=== PATIENT | male | born 1955 ===

== ENCOUNTER 2024-07-14 08:50 | Outpatient (REF) | payer OTHER, SELFPAY ==
[2024-07-14 09:54] LABS: MANUAL DIFF FLAG NO
--- OUTSIDE RECORDS SUMMARY | 2024-07-14 10:04 | XMS_ITS | Clinical Summary ---
Author Organization [address] [facility] Address [address] [place] [address] Phone Care Team Providers Care Sewer Hand Name Role Phone Rafia Fitch MD Primary [...] colon 05/13/2018 Overview (01/01/2024): Dr. Dorsey at [facility] 01/30/2012 4 polyps biopsied = tubular adenomas: [...] Chronic GERD 08/09/2016 Depression, major, [place] [place] Overview (01/01/2024): Prior to transferring to our practice in 2018 - saw psychiatrist at [facility] or [place]. Used to be on Risperdal in addition [...] Team Description 04/17/2024 Telephone Adult Medicine [address] [phone] Rafia Fitch MD Hyperglycemia from Last 3 [...] for your loved ones. For example, child nurse or elderly care for an older adult? [...] complication, without long-term current use of insulin ([facility] V24, [facility] V28) Dyslipidemia HEMOGLOBIN A1C Routine 04/15/2024 11:09 AM EST Type 2 diabetes mellitus without complication, without long-term current use of insulin ([facility] V24, [facility] V28) Dyslipidemia LIPID PANEL WITH REFLEX TO DIRECT LDL Routine 04/15/2024 11:09 AM EST Type 2 diabetes mellitus without complication, without long-term current use of insulin ([facility] V24, [facility] V28) Dyslipidemia URINE ALBUMIN CREATININE [...] mg/dL LAB CHEMISTRY METHOD 04/15/2024 5:06 PM [facility] Triglycerides 167(H) 0 - 150 mg/dL LAB CHEMISTRY METHOD 04/15/2024 5:06 PM [facility] HDL 46 >=40 mg/dL LAB CHEMISTRY METHOD 04/15/2024 5:06 PM [facility] LDL Calculated 107(H) 0 - 100 mg/dL LAB CHEMISTRY METHOD 04/15/2024 5:06 PM [facility] VLDL Cholesterol Marc 33.4 mg/dL LAB CHEMISTRY METHOD 04/15/2024 5:06 PM EST [facility] Non HDL Chol. (LDL+VLDL) 140 <145 mg/dL LAB CHEMISTRY METHOD 04/15/2024 5:06 PM [facility] Chol/HDL Ratio 4.0 0.0 - 4.4 LAB CHEMISTRY METHOD 04/15/2024 5:06 PM [facility] Blood Venous blood specimen / Unknown Venipuncture / Unknown 04/15/2024 11:09 AM EST 04/15/2024 11:09 AM EST Rafia Fitch MD LAB BLOOD ORDERABL ES Final Result Performing Organization Address [facility]/ZIP Co de Phone Number [facility] [address] [place] [address], [place] [phone] * (ABNORMAL) Hemoglobin A1c (04/15/2024 11:09 AM EST) Hemoglobin A1C 7.0(H) <6.5 % LAB CHEMISTRY METHOD 04/15/2024 1:56 PM [facility] Mean Bld Glu Estim. 154 mg/dL LAB CHEMISTRY METHOD 04/15/2024 1:56 PM [facility] Blood Venous blood specimen / Unknown Venipuncture / Unknown 04/15/2024 11:09 AM EST 04/15/2024 11:09 AM EST Rafia Fitch MD LAB BLOOD ORDERABL ES Final Result [facility] [address] [place] [address], [place] [phone] * (ABNORMAL) Comprehensive metabolic panel (04/15/2024 11:09 AM EST) Sodium 135 133 - 145 mmol/L LAB CHEMISTRY METHOD 04/15/2024 5:06 PM [facility] Potassium 4.1 3.5 - 5.5 mmol/L LAB CHEMISTRY METHOD 04/15/2024 5:06 PM [facility] Chloride 102 96 - 110 mmol/L LAB CHEMISTRY METHOD 04/15/2024 5:06 PM [facility] CO2 29 21 - 32 mmol/L LAB CHEMISTRY METHOD 04/15/2024 5:06 PM [facility] Anion Gap 4 3 - 11 LAB CHEMISTRY METHOD 04/15/2024 5:06 PM [facility] Glucose 168(H) 70 - 100 mg/dL LAB CHEMISTRY METHOD 04/15/2024 5:06 PM [facility] BUN 25 5 - 25 mg/dL LAB CHEMISTRY METHOD 04/15/2024 5:06 PM [facility] Creatinine 1.18 0.70 - 1.30 mg/dL LAB CHEMISTRY METHOD 04/15/2024 5:06 PM [facility] eGFR 67 >=60 mL/min/1. 73m2 LAB CHEMISTRY METHOD 04/15/2024 5:06 PM [facility] Comment:Calculation based on the??Chronic Kidney Disease Epidemiology Collaboration (CKD-EPI) equation refit??without adjustment for race. BUN/Creatinine Ratio 21.2 LAB CHEMISTRY METHOD 04/15/2024 5:06 PM [facility] Calcium 9.8 8.5 - 10.5 mg/dL LAB CHEMISTRY METHOD 04/15/2024 5:06 PM [facility] AST (SGOT) 18 10 - 42 unit/L LAB CHEMISTRY METHOD 04/15/2024 5:06 PM [facility] ALT (SGPT) 29 10 - 60 unit/L LAB CHEMISTRY METHOD 04/15/2024 5:06 PM [facility] Alkaline Phosphatase 82 42 - 121 unit/L LAB CHEMISTRY METHOD 04/15/2024 5:06 PM EST [facility] Total Protein 7.9 6.0 - 8.0 g/dL LAB CHEMISTRY METHOD 04/15/2024 5:06 PM EST [facility] Albumin 4.0 3.2 - 5.0 g/dL LAB CHEMISTRY METHOD 04/15/2024 5:06 PM EST [facility] Total Bilirubin 0.4 0.0 - 1.4 mg/dL LAB CHEMISTRY METHOD 04/15/2024 5:06 PM EST [facility] Blood Venous blood specimen / Unknown Venipuncture / Unknown 04/15/2024 11:09 AM EST 04/15/2024 11:09 AM EST Rafia Fitch MD LAB BLOOD ORDERABL ES Final Result [facility] [address] [place] [address], * Urine Albumin Creatinine Ratio (11/14/2023) [facility] Urine Albumin Creatinine Ratio Abstracted Historical Provider HEALTH MAINTENANCE Final Result * Diabetes Foot Exam (07/18/2023) [facility] Diabetes: Annual Foot Exam Abstracted Historical Provider HEALTH MAINTENANCE Final Result * Colonoscopy (07/30/2018) [facility] Colonoscopy No interpretation , Abstracted Anatomical Region Laterality Modality Other Historical Provider HEALTH MAINTENANCE Final Result * Hepatitis C Screening (11/07/2017) [facility] Hepatitis C Screening Abstracted Historical Provider HEALTH MAINTENANCE Final Result from Last 3 Months or Most Recently Relevant to Health Maintenance Insurance [facility] Member Subscriber Plan / Payer (Ef fective 2020-Present) Name:rDe Jimenez Relation to Subscriber:Self Name:Dre Jimenez Payer ID:[id number] Group ID:[id number] Type:Not on file Address: [place] [address] [place] [phone] Care Teams Sewer Hand Relationship Specialty Start Date End Date Rafia Fitch MD [address] [place] [id number] PCP - General Internal Medicine 10/03/21
[2024-07-14 10:32] LABS: Basophils Percent Auto 0.5 % (0-2); Eosinophils Absolute Auto 0.3 X10*3/uL (0.0-0.4); Eosinophils Percent Auto 3.8 % (0-4); Hemoglobin 12.3 g/dl (14.0-18.0); Imm Gran Abs Auto 0.03 X10*3/uL (0.00-0.03); Imm Gran Pct Auto 0.4 % (0.0-0.4); Lymphocytes Absolute Auto 2.7 X10*3/uL (1.2-4.9); Mean Corpuscular HGB Conc 33.2 g/dl (31.0-36.0); Mean Corpuscular Hemoglobin 30.2 pg (27.0-33.0); Mean Corpuscular Volume 90.9 fL (80.0-98.0); Mean Platelet Volume 9.1 fL (9.4-12.4); Monocytes Absolute Auto 0.4 X10*3/uL (0.1-1.2); Monocytes Percent Auto 5.8 % (2-11); Neutrophils Absolute Auto 3.8 x10*3/uL (2.0-8.3); Neutrophils Percent Auto 52.5 % (45-73); Platelet Count 197 X10*3/uL (160-400); Red Blood Count 4.07 X10*6/uL (4.60-5.80); Red Cell Distribution Width 12.6 % (11.0-16.0); White Blood Count 7.3 X10*3/uL (4.8-10.8)
[2024-07-14 11:23] LABS: Alanine Aminotransferase 31 U/L (0-40); Albumin Level 4.4 g/dL (3.5-5.0); Anion Gap 13 (12-20); Aspartate Amino Transferase 44 U/L (5-37); Bilirubin Total 0.5 mg/dL (0.0-1.0); Blood Urea Nitrogen 28 mg/dL (9-16); Carbon Dioxide 27 mmol/L (22-29); Chloride 102 mmol/L (96-108); Cholesterol 167 mg/dL (<200); Estimated Glomerular Filt Rate > 60; Glucose Fasting 117 mg/dL (60-99); HDL Cholesterol 46 mg/dL (>40); LDL Cholesterol Calculated 93 mg/dL (<100); Potassium 4.6 mmol/L (3.3-5.1); Sodium 137 mmol/L (135-145); Total Protein 7.8 g/dL (6.5-8.0); Triglycerides 140 mg/dL (<150)
[2024-07-14 11:37] LABS: Vitamin D 25-OH Total 29.6 ng/mL (>30)
[2024-07-14 12:22] LABS: Alkaline Phosphatase 74 U/L (39-117)
== END 2024-07-14 08:51 | disposition home or self-care (01) ==
LOC: HO.LAB 08:50
PROVIDERS: PCP Internal Medicine; Visit Provider Internal Medicine
DX: F33.1 Major depressive disorder, recurrent, moderate (principal); F41.1 Generalized anxiety disorder; J30.9 Allergic rhinitis, unspecified; G43.909 Migraine, unspecified, not intractable, without status migrainosus; E78.00 Pure hypercholesterolemia, unspecified; K21.9 Gastro-esophageal reflux disease without esophagitis; G47.00 Insomnia, unspecified; E55.9 Vitamin D deficiency, unspecified; E78.5 Hyperlipidemia, unspecified
CPT/HCPCS: 36415; 80053; 80061; 82306; 84153; 85025; 96127; 99202

== ENCOUNTER 2024-07-14 08:50 | Outpatient (AMB) | payer OTHER, SELFPAY ==
--- NOTE | 2024-07-14 08:53 | A.OFFPC_ITS ---
Vital Signs 07/14/24 08:57 Height 5 ft 7 in Weight 195 lb BMI 30.5 BP 138/82 Blood Pressure Location Lt brachial Position Sitting Intake Visit Reasons: establish [facility] Industrial Relations Analyst Required: No Accompanied by: Self / Same As Patient Allergies No Known Allergies [No Known Allergies*] Allergy (Verified 07/14/24 09:14) Medication List - Last Reconciled 07/14/24 by Brianda Galeana MD atorvastatin 80 mg PO DAILY cetirizine 10 mg PO DAILY hydroxyzine pamoate 50 mg PO BID PRN omeprazole 20 mg PO DAILY paroxetine HCl 30 mg PO DAILY prazosin 5 mg PO BEDTIME quetiapine 50 mg PO BEDTIME ramelteon 8 mg PO BEDTIME sumatriptan succinate take 1 tab at onset of headache; if no relief may repeat 1 tab after at least 2 hrs; max = 4 tabs/24 hr PO trazodone mg PO BEDTIME PRN Tobacco use date assessed: 07/14/24 Fall risk assessment: No Falls in past year Last assessed Fall Risk: 07/14/24 Dental Screening Dental Screen Date: 07/14/24 Did you have a dental visit in the last 12 months?: Yes Did you have a dental problem in the last 6 months where you did not have access to dental care?: No Was dental information given to patient?: Patient has dentist HPI HPI Comments History of Present Illness Details The patient is a 68-year-old male presents to [facility]. He is managing multiple chronic conditions with his current medication regimen, which includes atorvastatin for hyperlipidemia, paroxetine for moderate depression, and cetirizine for allergic rhinitis. He reports using hydroxyzine as needed, and omeprazole for gastroesophageal reflux disease management. He has insomnia addressed by trazodone and migraines treated with sumatriptan. He is receiving therapy and used Prazosin and Seroquel for psychiatric support, with ramelteon aiding sleep. There are no recent surgical procedures; however, the patient has anticipated a rotator cuff assessment. He has completed pneumonia and tetanus vaccinations. [facility] Surgical History History of toe surgery Family History (Updated 07/14/24 @ 09:21 by Brianda Galeana MD) Mother No problems noted. Father No problems noted. Social History (Updated 07/14/24 @ 09:22 by Brianda Galeana MD) Housing: Apartment Alcohol intake: current Alcohol intake frequency: holidays/special occasions only Patient Tobacco Use Status: Never used Tobacco e-Cigarette/Vaping Use: Never Used Second Hand Smoke Exposure: No service: No Current occupational status: retired Current occupational exposures/hazards: No Cognitive needs: No Hearing needs: No Vision needs: Yes Questionnaire PHQ-9 Over the last 2 weeks, how often have you been bothered by any of the following problems? 1. Little interest or pleasure in doing things: more than half the days 2. Feeling down, depressed, or hopeless: more than half the days 3. Trouble falling or staying asleep, or sleeping too much: more than half the days 4. Feeling tired or having little energy: more than half the days 5. Poor appetite or overeating: several days 6. Feeling bad about yourself - or that you are a failure or have let yourself or your family down: several days 7. Trouble concentrating on things, such as reading the newspaper or watching television: more than half the days 8. Moving or speaking so slowly that other people could have noticed. Or the opposite - being so fidgety or restless that you have been moving around a lot more than usual: several days 9. Thoughts that you would be better off or of hurting yourself in some way: not at all Total score: 13 Depression Screening Interpretation: Positive Depression Screening Follow-up: Existing condition, In treatment, Community Mental Health Worker F/U and Follow- up Visit Requested Depression Screening Done: Yes 69049 - PHQ-9 Billing: Yes Source: Developed by Drs. Sameer Ramos, Zoe Fields, Cameron Corral and colleagues, with an educational shaun from [employer]. Thrive Questionnaire Date Thrive assessed: 07/14/24 I am a: Patient What is your living situation today?: I have a steady place to live Within the past 12 months, did the food you bought not last and you didn't have the money to get more?: Never true Within the past 12 months, did you worry whether your food would run out before you got money to buy more?: Never true Do you have trouble paying for medicines?: No Do you have trouble getting transportation to medical appointments?: No Do you have trouble paying your heating and electricity bill?: No Do you have trouble taking care of your child, family member or friend?: Yes Do you have trouble with day-to-day activities such as bathing, preparing meals, shopping, managing finances, etc.?: Yes Are you currently unemployed and looking for a job?: No Are you interested in more education?: No Please select the resources that you would like help with: None Currently or been in a relationship where the following occur: I choose not to answer THRIVE Score: 0 AUDIT C Alcohol Use Questionnaire (AUDIT-C) 1. How often do you have a drink containing alcohol?: Never Total Score: 0 Score Reviewed/Action Taken: No ERIC-7 AMB Questionnaire ERIC-7 Date ERIC - 7 assessed: 07/14/24 Feeling nervous, anxious, or on edge: 2 = More than half the days Not being able to stop or control worryin = Several days Worrying too much about different things: 1 = Several days Trouble relaxin = Several days Being so restless that it is hard to sit still: 1 = Several days Becoming easily annoyed or irritable: 1 = Several days Feeling afraid as if something awful might happen: 1 = Several days Total ERIC-7 score (0-4 normal; 5-9 mild; 10-14 moderate; 15-21 severe): 8 Source: Developed by Drs. Sameer Ramos, Zoe Fields, Cameron Corral and colleagues, with an educational shaun from [employer]. ERIC-7 Assessment Billing ERIC-7 Assessment Tool: ERIC-7 Assessment 33055 Review of Systems Const All systems reviewed & are unremarkable except as noted in HPI and below Card Denies chest pain at rest, Denies chest pain with activity, Denies edema, Denies irregular heart rhythm, Denies claudication, Denies dyspnea, Denies dyspnea on exertion, Denies orthopnea, Denies paroxysmal nocturnal dyspnea and Denies slow heart rate Resp Denies cough, Denies dyspnea and Denies dyspnea on exertion GI Denies abdominal pain, Denies change in bowel habits, Denies excessive flatus, Denies nausea and Denies vomiting Neuro Denies behavioral changes and Denies lack of coordination Psych Denies behavioral changes Physical exam (Primary Care) Vital Signs: Last Vital Signs BP 138/82 07/14/24 08:57 BMI result Body Mass Index 30.5 Tobacco/Smoking Status: Tobacco use Status Tobacco use date assessed 07/14/24 07/14/24 09:06 Patient Tobacco Use Status Never used Tobacco 07/14/24 09:06 e-Cigarette/Vaping Use Never Used 07/14/24 09:06 PHQ-9: PHQ-9 Score PHQ-9: Total score 13 07/14/24 08:55 Depression Screening Interpretation: Positive Depression Screening Follow-up: Existing condition, In treatment, Community Mental Health Worker F/U and Follow- up Visit Requested Thrive Assessment: Date of Thrive Assessment Date Thrive assessed 07/14/24 07/14/24 08:55 Currently or been in a relationship where the following occur: I choose not to answer Resp Effort & Inspection: normal respiratory effort Auscultation: clear to auscultation bilaterally Cardio Jugular venous distension: no JVD Rate: regular rate Rhythm: regular rhythm Heart sounds: S1 normal heart sound present and S2 normal heart sound present Extrem General: Yes full ROM Coding Level of Care Code New Pt Level 4 (19100) Complex EM visit Add On G2211 Diagnoses 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 ERIC (generalized anxiety disorder) F41.1 Allergic rhinitis J30.9 Migraines G43.909 Pure hypercholesterolemia E78.00 Chronic GERD K21.9 Insomnia G47.00 Additional Codes PHQ-9 - 00167 - PHQ-9 Billing: Yes ([id number]) ERIC-7 Assessment Billing - ERIC-7 Assessment Tool: ERIC-7 Assessment 97931 ([id number]) Time Spent (min) 24 Assessment & Plan Assessment & Plan (1) Moderate recurrent major depression: Code(s): F33.1 - Major depressive disorder, recurrent, moderate Category: Medical (2) ERIC (generalized anxiety disorder): Code(s): F41.1 - Generalized anxiety disorder Category: Medical (3) Allergic rhinitis: Code(s): J30.9 - Allergic rhinitis, unspecified Category: Medical (4) Migraines: Code(s): G43.909 - Migraine, unspecified, not intractable, without status migrainosus Category: Medical (5) Pure hypercholesterolemia: Code(s): E78.00 - Pure hypercholesterolemia, unspecified Category: Medical (6) Chronic GERD: Code(s): K21.9 - Gastro-esophageal reflux disease without esophagitis Category: Medical (7) Insomnia: Code(s): G47.00 - Insomnia, unspecified Category: Medical Plan I will continue to monitor the patient?s current medication management, including atorvastatin for hyperlipidemia and paroxetine for depression, while ensuring adequate control of other chronic conditions. Insomnia and migraines remain under focused treatment with trazodone and sumatriptan, respectively. Vaccinations are up-to-date, but plans for future colonoscopy and rotator cuff evaluations are pending. Follow-up to ensure proper adherence and effectiveness of current therapeutic strategies will be emphasized. Patient was informed and verbally consented to the use of an ambient scribe for clinic note documentation during this visit. I discussed existing treatment regimens with the patient, including the continuation of atorvastatin for cholesterol management and paroxetine, Prazosin, and therapy for depression and PTSD symptoms. We reviewed the importance of medication compliance to manage his presenting conditions, including using cetirizine and hydroxyzine for allergies and sumatriptan for migraines. I advised on potential adverse effects, and the patient expressed understanding. There was a discussion about the need for a colonoscopy and possible rotator cuff evaluation, both pending. Vaccine statuses were confirmed, and wellness screening through routine blood tests were advised. Orders: Orders Vitamin D 25-OH Total Today E55.9 - Vitamin D deficiency, unspecified Lipid Panel Today E78.5 - Hyperlipidemia, unspecified Comprehensive [place]. Panel Fast Today E78.00 - Pure hypercholesterolemia, unspecified PSA,Total (Free>4and<10) Today R35.1 - Nocturia Complete Blood Count Auto Diff Today G43.909 - Migraine, unspecified, not intractable, without status migrainosus Referrals Open Access Screening Colonoscopy Referral Z12.12 - Encounter for screening for malignant neoplasm of rectum Patient Instructions: - Continue prescribed medications as directed. - Follow a low-cholesterol diet with regular exercise as tolerated. - Schedule colonoscopy appointment as planned. - Monitor and report any new symptoms or changes in existing conditions. - Contact healthcare provider with any questions or concerns. - Stay up-to-date with vaccinations and recommended screenings.
[2024-07-14 08:57] VITALS: BP 138/82; BMI 30.5
--- OUTSIDE RECORDS SUMMARY | 2024-07-14 08:57 | XMS_ITS | Clinical Summary ---
Author Organization [address] [facility] Address [address] [place] [address] Phone Care Team Providers Care Physician Aide Name Role Phone Rafia Fitch MD Primary Care Prov ider Allergies No known active allergies Medications blood-glucose meter kit Use to check blood sugars once daily 3 Active diclofenac (VOLTAREN) 1 % topical gel Apply 4 g topically 2 times daily. 4 Active fluticasone propionate (FLONASE) 50 mcg/actuation nasal spray 2 Sprays by Each Nare route daily. 3 Active hydrOXYzine HCL (ATARAX) 50 mg tablet Take 1 tablet by mouth 2 Times Daily. 1 Active omeprazole (PriLOSEC) [address] capsule TAKE 1 CAPSULE BY MOUTH EVERY DAY 4 Active oxyCODONE (ROXICODONE) 5 mg immediate release tablet Take one tablet every 4 hours as needed for pain 4 Active PARoxetine (PAXIL) 30 mg tablet TAKE 1 TABLET BY MOUTH EVERY DAY IN THE MORNING 3 Active prazosin (MINIPRESS) 5 mg capsule TAKE 1 CAPSULE BY MOUTH EVERY DAY AT BEDTTIME 2 Active QUEtiapine (SEROquel) 50 mg tablet 1 Active ramelteon (ROZEREM) 8 mg tablet 1 Active albuterol HFA (PROAIR HFA ; PROVENTIL HFA ; VENTOLIN HFA) 90 mcg/actuation inhaler Inhale 2 puffs by mouth every 6 (six) hours if needed for wheezing. 1 each 4 Active guaiFENesin (MUCINEX) 600 mg 12 hr tablet Take 2 tablets (1,200 mg total) by mouth 2 (two) times a day if needed for cough. Do not crush, chew, or split. 20 each 4 Active metFORMIN (GLUCOPHAGE) 500 mg tablet Take 1 tablet (500 mg total) by mouth 2 (two) times a day with meals. 180 tablet 1 5 Active SITagliptin phosphate (Januvia) 25 mg tablet Take 1 tablet (25 mg total) by mouth 1 (one) time each day. 90 tablet 5 Active atorvastatin (LIPITOR) 80 mg tablet TAKE 1 TABLET BY MOUTH EVERY DAY 90 tablet 1 5 Active OneTouch Ultra Test test strip USE TO CHECK BLOOD SUGAR ONCE DAILY 100 strip 1 5 Active lisinopriL (PRINIVIL,ZESTR IL) 10 mg tablet TAKE 1 TABLET BY MOUTH EVERY DAY 90 tablet 5 Active cetirizine (ZyrTEC) 10 mg tablet TAKE 1 TABLET BY MOUTH EVERY DAY 90 tablet 1 5 Active traZODone (DESYREL) 150 mg tablet TAKE 2 TABLETS BY MOUTH AT BEDTIME 180 tablet 1 5 Active lancets (OneTouch Delica Plus Lancet) 33 gauge USE ONCE A DAY DIRECTED 100 each 1 5 Active Active Problems Problem Noted Date Diagnosed Date Trigger index finger of left hand 03/11/2021 Chronic pain of both knees 10/03/2018 Tubular adenoma of colon 05/13/2018 Overview (01/01/2024): Dr. Dorsey at [facility] 01/30/2012 4 polyps biopsied = tubular adenomas: Cecum, Ascending colon, sigmoid colon, rectum Rpt colonoscopy Dr. Kimi Mckeon 07/30/2018 - 5 polyps - tubular adenomas. Rpt in 5 yrs Decreased libido 02/14/2018 Type 2 diabetes mellitus (CMS/HCC V24, CMS/HCC V 28) 06/14/2017 Assessment & Plan (03/28/2024 12:24 PM EST): Good control of diabetes. A1C: 6.8. Patient will continue with yearly Podiatric and Ophthomologic evaluations. Will continue Angiotensin Converting Enzyme Inhibitor for renal protection. Patient states he does not want to take Metformin anymore for possible side effects. I explained to him the benefits of this medication, and that he has tolerated it well, however he wants to try a different one. Will prescribe Januvia. Benefits and possible side effects of this medication were discussed today. Will start a dose of 25 mg, recheck his A1c before his next visit. Instructed to stop taking metformin when he gets the new medication. Patient has been following the diet recommendations, and exercising regularly. We will check a hemoglobin A1c, before next visit. Patient will follow up in 4 months Orders: Comprehensive metabolic panel; Future Hemoglobin A1c; Future Lipid panel with reflex to direct LDL; Future Lung nodule 04/03/2017 Wheezing 04/03/2017 Anxiety 03/01/2017 Migraine 03/01/2017 Depression 03/01/2017 Assessment & Plan (03/28/2024 12:24 PM EST): Patient follows regularly with his psychiatrist. Encouraged to keep his appointments and continue taking the medications. No SI, HI. Pure hypercholesterolemia 03/01/2017 Anemia 09/25/2016 Chronic GERD 08/09/2016 Depression, major, in remission [place] [place] Overview (01/01/2024): Prior to transferring to our practice in 2018 - saw psychiatrist at [facility] or [place]. Used to be on Risperdal in addition to fluoxetine, hydroxyzine, prazosin Dyslipidemia 08/09/2016 Assessment & Plan (03/28/2024 12:24 PM EST): Given the patients cardiac risk, the patient requires an LDL cholesterol of less than 70. Currently on atorvastatin 80 mg daily. Last LDL was 78. I have instructed the patient on the principles of a low cholesterol diet and the importance of regular exercise. We will check a cholesterol profile before the next visit. Orders: Comprehensive metabolic panel; Future Hemoglobin A1c; Future Lipid panel with reflex to direct LDL; Future Obesity 08/09/2016 Right hand and foot pain 08/09/2016 Seasonal allergies 08/09/2016 Encounters Date Type Department Care Team Description 04/17/2024 Telephone Adult Medicine [address] [id number] Rafia Fitch MD Hyperglycemia from Last 3 Months Immunizations Name Administration Dates Next Due Influenza Quadravalent, MDCK , 0.5ml, preservative free (Flucelvax) 6mo and older 12/05/2019 Influenza Quadravalent, MDCK , 0.5ml, with preservative (Flucelvax) 6mo and older 11/07/2017 Influenza trivalent, 0.5mL ( Fluad) 65yo and older 11/07/2023,01/02/2023,01/10/2022,01/20 Influenza trivalent, 0.5mL, preservative free (Fluarix; FluLaval; Fluzone) ages 6mo and older (Afluria) 3 years and older 01/14/2022,12/03/2018 Influenza, Unspecified 01/02/2023,12/03/2018 Pneumococcal conjugate 20 va lent (Prevnar 20, PCV 20) 2mo and older 07/18/2023 Pneumococcal polysaccharide 23 valent (Pneumovax 23) 2yo and older 06/14/2017 Tdap Tetanus diptheria acell ular pertussis (Boostrix; Adacel) 7yo and older 06/14/2017 Zoster recombinant (Shingrix ) 19yo and older 05/16/2021,05/04/2021,02/28/2021,11/04 Surgical History Surgery Date Site/Laterality Comments FOOT ARTHROPLASTY Medical History Medical History Date Comments Decreased libido 02/14/2018 DX:Decreased li shaq Tubular adenoma of colon 05/13/2018 DX:Tubu lar adenoma of colon Chronic pain of both knees 10/03/2018 DX:Ch ronic pain of both knees HTN (hypertension) Hyperlipidemia Diabetes (CMS/HCC V24, CMS/HCC V28) Anxiety Family History Medical History Relation Name Comments No Known Problems Daughter No Known Problems Father Alzheimer's disease Mother No Known Problems Son Brain cancer Neg Hx Colon cancer Neg Hx Heart attack Neg Hx Prostate cancer Neg Hx Stroke Neg Hx Relation Name Status Comments Brother 1 Alive Brother 2 Alive Brother 3 Alive Brother 4 Alive Brother 5 Alive Daughter Alive Father Alive Maternal Grandfather Maternal Grandmother Mother Alive Paternal Grandfather Paternal Grandmother Sister 1 Alive Sister 2 Alive Son Alive Social History Tobacco Use Types Packs/Day Years Used Date Smoking Tobacco: Never Smokeless Tobacco: Never Tobacco Cessation:Counseling Given: Not Answered Alcohol Use Standard Drinks/Week Comments No 0 (1 standard drink = 0.6 oz pur e alcohol) Housing Instability Answer Date Recorde d Are you worried that in the next 2 months you may not have stable housing? No 03/21/2024 Food Access & Nutrition Answer Date Rec orded Do you have access to a vari ety of food including fruits and vegetables? Yes 03/21/2024 Access to Healthcare Answer Date Record ed Within the last 3 months, ho w many times did you visit the emergency department for your medical care? 1 03/21/2024 Health Literacy Answer Date Recorded How often do you need to hav e someone help you when you read instructions, pamphlets, or other written material from your doctor or pharmacy? Always 03/21/2024 Caregiver: How often do you need to have someone help you when you read instructions, pamphlets, or other written material from your doctor or pharmacy? Not on file 03/21/2024 Financial Risk Answer Date Recorded How hard is it for you to pa y for the very basics like food, housing, medical care, and air conditioning / heating? Unable to respond 03/21/2024 Transportation Answer Date Recorded Has the lack of transportati on kept you from meetings, work, or from getting things needed for daily living? No Has the lack of transportati on kept you from medical appointments or from getting medications? No 03/21/2024 Social Isolation Answer Date Recorded How often do you feel lonely or isolated from th ose around you? Often 03/21/2024 Food Risk Answer Date Recorded Within the past 12 months we worried whether our food would run out before we got money to buy more. Unable to respond 025 Within the past 12 months th e food we bought just didn't last and we didn't have money to get more. Unable to respond 03/05 Dependent Care Answer Date Recorded Do you need help finding or paying for care for your loved ones. For example, child care teacher or elderly care for an older adult? No 03/21/2024 Education Answer Date Recorded Do you think completing more education or training, like finishing a GED, going to college, or learning a trade, would be helpful for you? Patient declined 03/21/2024 Employment and Income Answer Date Recor ded During the last four weeks, have you been actively looking for work? No 03/21/2024 Living Situation Answer Date Recorded What is your living situation? 0 03/21/2024 Sex and Gender Information Value Date Recorded Sex Assigned at Not on file Legal Sex Male 9:43 AM EST Gender Identity Not on file Sexual Orientation Not on file Obstetrics History Last Filed Vital Signs Vital Sign Reading Time Taken Comments Blood Pressure 112/62 03/28/2024 9:16 AM EST Pulse 73 03/28/2024 9:16 AM EST Temperature 36.4 ??C (97.5 ??F) 03/28/2024 9:16 AM ES T Respiratory Rate 18 03/28/2024 9:16 AM EST Oxygen Saturation 98% 01/17/2024 9:50 AM EST Inhaled Oxygen Concentration - - Weight 87.5 kg (193 lb) 03/28/2024 9:16 AM EST Height 177.8 cm (5' 10 ) 01/21/2024 12:49 PM EST Body Mass Index 27.69 01/21/2024 12:49 PM EST Plan of Treatment Health Maintenance Due Date Last Done Comments Medicare Annual Wellness Visit 02/11/2022 Colorectal Cancer Screening: Colonoscopy 07/31/2023 07/30/2018 COVID-19 Vaccine ( season) 2023 12/14/2020, 05/03/2020, 04/12/2020 Diabetes: Annual Foot Exam 07/17/2024 07/18/2023 Diabetes: Blood Sugar Control Test (HGBA1C) 10/13/2024 04/15/2024, 11/14/2023, 11/14/2023, Additional history exists Diabetes: Annual Urine Albumin-Creatinine Ratio (uACR) 11/13/2024 11/14/2023 Depression Screening 03/21/2025 03/21/2024 Social Influencers of Health Screening 03/21/2025 03/21/2024 Falls Risk Assessment 03/28/2025 03/28/2024 Diabetes: Annual GFR (Glomerular Filtration Rate) 04/15/2025 04/15/2024, 01/08/2024, 12/05/2023, Additional history exists Diabetes: Annual Retina Eye Exam 04/24/2025 04/24/2024, 06/21/2023 DTaP,Tdap,and Td Vaccines (2 - Td or Tdap) 06/15/2027 06/14/2017 Cholesterol Screening (Lipid Panel) 04/15/2029 04/15/2024, 04/11/2023 RSV Immunization Adult Patients (1 - 1-dose 75+ series) 07/25/2030 Hepatitis C Screening Completed 11/07/2017 Zoster Vaccines Completed 05/16/2021, 0304/2021, 02/28/2021, Additional history exists Pneumococcal Vaccine: 50+ Years Completed 07/18/2023, 06/14/2017 Influenza Vaccine Completed 11/07/2023, , 01/02/2023, Additional history exists HIB Vaccines Aged Out No longer eligi ble based on patient's age to complete this topic HPV Vaccines Aged Out No longer eligi ble based on patient's age to complete this topic Hepatitis A Vaccines Aged Out No long er eligible based on patient's age to complete this topic Hepatitis B Vaccines Aged Out No long er eligible based on patient's age to complete this topic IPV Vaccines Aged Out No longer eligi ble based on patient's age to complete this topic MMR Vaccines Aged Out No longer eligi ble based on patient's age to complete this topic Meningococcal ACWY Vaccine Aged Out N o longer eligible based on patient's age to complete this topic Meningococcal B Vaccine Aged Out No l onger eligible based on patient's age to complete this topic RSV Immunization Patients Under 20 months Aged Out No longer eligible based on patient's age to complete this topic Varicella Vaccines Aged Out No longer eligible based on patient's age to complete this topic Procedures Procedure Name Priority Date/Time Associated Diagnosis Comments EXTERNAL DIABETIC RETINA EYE EXAM Routine 04/24/2024 10:48 AM EST COMPREHENSIVE METABOLIC PANEL Routine 04/15/2024 11:09 AM EST Type 2 diabetes mellitus without complication, without long-term current use of insulin ([facility] V24, [facility] V28) Dyslipidemia HEMOGLOBIN A1C Routine 04/15/2024 11:09 AM EST Type 2 diabetes mellitus without complication, without long-term current use of insulin ([facility] V24, [facility] V28) Dyslipidemia LIPID PANEL WITH REFLEX TO DIRECT LDL Routine 04/15/2024 11:09 AM EST Type 2 diabetes mellitus without complication, without long-term current use of insulin ([facility] V24, [facility] V28) Dyslipidemia URINE ALBUMIN CREATININE RATIO Routine 11/14/2023 DIABETES FOOT EXAM Routine 07/18/2023 COLONOSCOPY Routine 07/30/2018 HEPATITIS C SCREENING Routine 11/07/2017 from Last 3 Months or Most Recently Relevant to Health Maintenance Results * External Diabetic Retina Eye Exam Report (04/24/2024 10:48 AM EST) Anatomical Region Laterality Modality Ultrasound us Historical Provider MD RAMOS US PROCEDURES Final R esult * (ABNORMAL) Lipid panel with reflex to direct LDL (04/15/2024 11:09 AM EST) Cholesterol 186 0 - 200 mg/dL LAB CHEMISTRY METHOD 04/15/2024 5:06 PM [facility] Triglycerides 167(H) 0 - 150 mg/dL LAB CHEMISTRY METHOD 04/15/2024 5:06 PM [facility] HDL 46 >=40 mg/dL LAB CHEMISTRY METHOD 04/15/2024 5:06 PM [facility] LDL Calculated 107(H) 0 - 100 mg/dL LAB CHEMISTRY METHOD 04/15/2024 5:06 PM [facility] VLDL Cholesterol Marc 33.4 mg/dL LAB CHEMISTRY METHOD 04/15/2024 5:06 PM EST [facility] Non HDL Chol. (LDL+VLDL) 140 <145 mg/dL LAB CHEMISTRY METHOD 04/15/2024 5:06 PM [facility] Chol/HDL Ratio 4.0 0.0 - 4.4 LAB CHEMISTRY METHOD 04/15/2024 5:06 PM [facility] Blood Venous blood specimen / Unknown Venipuncture / Unknown 04/15/2024 11:09 AM EST 04/15/2024 11:09 AM EST Rafia Fitch MD LAB BLOOD ORDERABL ES Final Result Performing Organization Address [facility]/ZIP Co de Phone Number [facility] [address] [place] [address], [place] [phone] * (ABNORMAL) Hemoglobin A1c (04/15/2024 11:09 AM EST) Hemoglobin A1C 7.0(H) <6.5 % LAB CHEMISTRY METHOD 04/15/2024 1:56 PM [facility] Mean Bld Glu Estim. 154 mg/dL LAB CHEMISTRY METHOD 04/15/2024 1:56 PM [facility] Blood Venous blood specimen / Unknown Venipuncture / Unknown 04/15/2024 11:09 AM EST 04/15/2024 11:09 AM EST Rafia Fitch MD LAB BLOOD ORDERABL ES Final Result [facility] [address] [place] [address], [place] [phone] * (ABNORMAL) Comprehensive metabolic panel (04/15/2024 11:09 AM EST) Sodium 135 133 - 145 mmol/L LAB CHEMISTRY METHOD 04/15/2024 5:06 PM [facility] Potassium 4.1 3.5 - 5.5 mmol/L LAB CHEMISTRY METHOD 04/15/2024 5:06 PM [facility] Chloride 102 96 - 110 mmol/L LAB CHEMISTRY METHOD 04/15/2024 5:06 PM [facility] CO2 29 21 - 32 mmol/L LAB CHEMISTRY METHOD 04/15/2024 5:06 PM [facility] Anion Gap 4 3 - 11 LAB CHEMISTRY METHOD 04/15/2024 5:06 PM [facility] Glucose 168(H) 70 - 100 mg/dL LAB CHEMISTRY METHOD 04/15/2024 5:06 PM [facility] BUN 25 5 - 25 mg/dL LAB CHEMISTRY METHOD 04/15/2024 5:06 PM [facility] Creatinine 1.18 0.70 - 1.30 mg/dL LAB CHEMISTRY METHOD 04/15/2024 5:06 PM [facility] eGFR 67 >=60 mL/min/1. 73m2 LAB CHEMISTRY METHOD 04/15/2024 5:06 PM [facility] Comment:Calculation based on the??Chronic Kidney Disease Epidemiology Collaboration (CKD-EPI) equation refit??without adjustment for race. BUN/Creatinine Ratio 21.2 LAB CHEMISTRY METHOD 04/15/2024 5:06 PM [facility] Calcium 9.8 8.5 - 10.5 mg/dL LAB CHEMISTRY METHOD 04/15/2024 5:06 PM [facility] AST (SGOT) 18 10 - 42 unit/L LAB CHEMISTRY METHOD 04/15/2024 5:06 PM [facility] ALT (SGPT) 29 10 - 60 unit/L LAB CHEMISTRY METHOD 04/15/2024 5:06 PM [facility] Alkaline Phosphatase 82 42 - 121 unit/L LAB CHEMISTRY METHOD 04/15/2024 5:06 PM EST [facility] Total Protein 7.9 6.0 - 8.0 g/dL LAB CHEMISTRY METHOD 04/15/2024 5:06 PM EST [facility] Albumin 4.0 3.2 - 5.0 g/dL LAB CHEMISTRY METHOD 04/15/2024 5:06 PM EST [facility] Total Bilirubin 0.4 0.0 - 1.4 mg/dL LAB CHEMISTRY METHOD 04/15/2024 5:06 PM EST [facility] Blood Venous blood specimen / Unknown Venipuncture / Unknown 04/15/2024 11:09 AM EST 04/15/2024 11:09 AM EST Rafia Fitch MD LAB BLOOD ORDERABL ES Final Result [facility] [address] [place] [address], * Urine Albumin Creatinine Ratio (11/14/2023) [facility] Urine Albumin Creatinine Ratio Abstracted Historical Provider HEALTH MAINTENANCE Final Result * Diabetes Foot Exam (07/18/2023) [facility] Diabetes: Annual Foot Exam Abstracted Historical Provider HEALTH MAINTENANCE Final Result * Colonoscopy (07/30/2018) [facility] Colonoscopy No interpretation , Abstracted Anatomical Region Laterality Modality Other Historical Provider HEALTH MAINTENANCE Final Result * Hepatitis C Screening (11/07/2017) [facility] Hepatitis C Screening Abstracted Historical Provider HEALTH MAINTENANCE Final Result from Last 3 Months or Most Recently Relevant to Health Maintenance Insurance [facility] MEDICARE Member Subscriber Plan / Payer (Ef fective 2020-Present) Name:Dre Jimenez Relation to Subscriber:Self Name:Dre Jimenez Payer ID:[id number] Group ID:[id number] Type:Not on file Address: [place] [address] [place] [address] Care Teams Physician Aide Relationship Specialty Start Date End Date Rafia Fitch MD [address] [place] [id number] PCP - General Internal Medicine 10/03/21
== END 2024-07-14 09:27 | disposition home or self-care (01) ==
LOC: HO.HMCH 08:50
PROVIDERS: PCP Internal Medicine; Visit Provider Internal Medicine
DX: F33.1 Major depressive disorder, recurrent, moderate (principal); F41.1 Generalized anxiety disorder; J30.9 Allergic rhinitis, unspecified; G43.909 Migraine, unspecified, not intractable, without status migrainosus; E78.00 Pure hypercholesterolemia, unspecified; K21.9 Gastro-esophageal reflux disease without esophagitis; G47.00 Insomnia, unspecified

== ENCOUNTER 2025-01-28 09:48 | Outpatient (REF) | payer OTHER, SELFPAY ==
[2025-01-28 11:58] LABS: Microalbum/Creatinine Ratio Ur 7.4 ug/mg cr (<30)
[2025-01-28 12:09] LABS: Alanine Aminotransferase 23 U/L (0-40); Albumin Level 4.8 g/dL (3.5-5.0); Alkaline Phosphatase 59 U/L (39-117); Anion Gap 11 (12-20); Aspartate Amino Transferase 24 U/L (5-37); Blood Urea Nitrogen 22 mg/dL (9-16); Calcium 9.8 mg/dL (8.4-10.2); Carbon Dioxide 25 mmol/L (22-29); Chloride 105 mmol/L (96-108); Cholesterol 285 mg/dL (<200); Estimated Glomerular Filt Rate > 60; HDL Cholesterol 43 mg/dL (>40); Potassium 4.3 mmol/L (3.3-5.1); Sodium 137 mmol/L (135-145); Total Protein 8.2 g/dL (6.5-8.0); Triglycerides 159 mg/dL (<150)
[2025-01-28 12:38] LABS: PSA,Total (Free>4and<10) 0.25 ng/mL (0.00-4.00)
[2025-02-03 16:58] LABS: Testosterone, Free 79.3 pg/mL (35.0-155.0)
== END 2025-01-28 09:49 | disposition home or self-care (01) ==
LOC: HO.LAB 09:48
PROVIDERS: PCP Internal Medicine; Visit Provider Internal Medicine
DX: Z00.00 Encounter for general adult medical examination without abnormal findings (principal); R35.1 Nocturia; R80.9 Proteinuria, unspecified; F41.9 Anxiety disorder, unspecified; N52.9 Male erectile dysfunction, unspecified; F33.1 Major depressive disorder, recurrent, moderate; E11.9 Type 2 diabetes mellitus without complications; E78.00 Pure hypercholesterolemia, unspecified; Z12.5 Encounter for screening for malignant neoplasm of prostate; Z79.899 Other long term (current) drug therapy
CPT/HCPCS: 36415; 80053; 80061; 82043; 82570; 84153; 84402; 84403; 96127; 99212; 99397

== ENCOUNTER 2025-01-28 09:48 | Outpatient (AMB) | payer OTHER, SELFPAY ==
[2025-01-28 10:00] VITALS: BP 130/86; PULSE 88; TEMP 36.3; O2SAT 96; BMI 30.8
--- NOTE | 2025-01-28 10:00 | A.OFFPC_ITS ---
Vital Signs 01/28/25 10:00 Height 5 ft 7 in Weight 196 lb 8 oz BMI 30.8 BP 130/86 Blood Pressure Location Lt brachial Position Sitting Pulse 88 Pulse Source Pulse Oximeter Temp 97.3 F Temp Source Temporal Artery Scan Pulse Oximetry (%) 96 Oxygen Delivery Method Room Air Intake Visit Reasons: Annual Exam- see comments Administration Physician Required: No Accompanied by: Self / Same As Patient Allergies No Known Allergies (No Known Allergies*) Allergy (Verified 01/28/25 10:10) Medication List - Last Reconciled 01/28/25 by Brianda Galeana MD atorvastatin 80 mg PO DAILY hydroxyzine pamoate 50 mg PO BID PRN lisinopril 10 mg PO DAILY 90 days montelukast 10 mg PO BEDTIME 90 days omeprazole 20 mg PO DAILY paroxetine HCl 30 mg PO DAILY prazosin 5 mg PO BEDTIME quetiapine 50 mg PO BEDTIME ramelteon 8 mg PO BEDTIME sumatriptan succinate take 1 tab at onset of headache; if no relief may repeat 1 tab after at least 2 hrs; max = 4 tabs/24 hr PO trazodone 150 mg PO BEDTIME PRN 30 days Tobacco use date assessed: 01/28/25 Fall risk assessment: No Falls in past year Last assessed Fall Risk: 01/28/25 Dental Screening Dental Screen Date: 01/28/25 Did you have a dental visit in the last 12 months?: Yes Did you have a dental problem in the last 6 months where you did not have access to dental care?: No Was dental information given to patient?: Patient has dentist HPI HPI Comments History of Present Illness Details The patient is a 69 year old individual presenting for his physical exam. The patient has a history of depression and anxiety, with a recent PHQ-9 score of 13 indicating moderate depression. Current medications include paroxet ine 30 mg, hydroxyzine, and trazodone for sleep. For type 2 diabetes mellitus, the patient takes metformin 500 mg twice daily. An A1c performed about two weeks ago was less than 7% by [facility] at home. The patient reports recent fasting glucose values of 119 mg/dL and 122 mg/dL. Cardiovascular history includes hypertension, managed with lisinopril 10 mg, and hypercholesterolemia, treated with atorvastatin 80 mg. The patient's blood pressure was 130/86 mmHg during the visit, and the last LDL cholesterol level was 93 mg/dL, which is above the goal of 70 mg/dL. The patient reports erectile dysfunction and is interested in testosterone therapy. Other chronic conditions include migraines managed with sumatriptan, acid reflux managed with omeprazole, and allergies/asthma treated with Singulair. Past surgical history includes foot surgery. The patient recently underwent a dental procedure involving three screws and four stitches. Family history is noncontributory, with parents who had no known chronic illnesses. [facility] Surgical History History of toe surgery Family History Mother No problems noted. Father No problems noted. Social History Housing: Apartment Alcohol intake: current Alcohol intake frequency: holidays/special occasions only Patient Tobacco Use Status: Never used Tobacco e-Cigarette/Vaping Use: Never Used Second Hand Smoke Exposure: No service: No Current occupational status: retired Current occupational exposures/hazards: No Cognitive needs: No Hearing needs: No Vision needs: Yes Questionnaire PHQ-9 Over the last 2 weeks, how often have you been bothered by any of the following problems? 1. Little interest or pleasure in doing things: more than half the days 2. Feeling down, depressed, or hopeless: more than half the days 3. Trouble falling or staying asleep, or sleeping too much: more than half the days 4. Feeling tired or having little energy: more than half the days 5. Poor appetite or overeating: several days 6. Feeling bad about yourself - or that you are a failure or have let yourself or your family down: several days 7. Trouble concentrating on things, such as reading the newspaper or watching television: more than half the days 8. Moving or speaking so slowly that other people could have noticed. Or the opposite - being so fidgety or restless that you have been moving around a lot more than usual: several days 9. Thoughts that you would be better off or of hurting yourself in some way: not at all Total score: 13 Depression Screening Interpretation: Positive Depression Screening Follow-up: Existing condition, In treatment, Community Mental Health Worker F/U and Follow- up Visit Requested Depression Screening Done: Yes 48136 - PHQ-9 Billing: Yes Source: Developed by Drs. Sameer Ramos, Zoe Fields, Cameron lopez nd colleagues, with an educational sahun from [email or web address]. Thrive Questionnaire Date Thrive assessed: 07/14/24 I am a: Patient What is your living situation today?: I have a steady place to live Within the past 12 months, did the food you bought not last and you didn't have the money to get more?: Never true Within the past 12 months, did you worry whether your food would run out before you got money to buy more?: Never true Do you have trouble paying for medicines?: No Do you have trouble getting transportation to medical appointments?: No Do you have trouble paying your heating and electricity bill?: No Do you have trouble taking care of your child, family member or friend?: Yes Do you have trouble with day-to-day activities such as bathing, preparing meals, shopping, managing finances, etc.?: Yes Are you currently unemployed and looking for a job?: No Are you interested in more education?: No Please select the resources that you would like help with: None Currently or been in a relationship where the following occur: I choose not to answer THRIVE Score: 0 AUDIT C Alcohol Use Questionnaire (AUDIT-C) 1. How often do you have a drink containing alcohol?: Never 3. How often do you have six or more drinks on one occasion?: Never Total Score: 0 Score Reviewed/Action Taken: No ERIC-7 AMB Questionnaire ERIC-7 Date ERIC - 7 assessed: 07/14/24 Feeling nervous, anxious, or on edge: 2 = More than half the days Not being able to stop or control worryin = Several days Worrying too much about different things: 1 = Several days Trouble relaxin = Several days Being so restless that it is hard to sit still: 1 = Several days Becoming easily annoyed or irritable: 1 = Several days Feeling afraid as if something awful might happen: 1 = Several days Total ERIC-7 score (0-4 normal; 5-9 mild; 10-14 moderate; 15-21 severe): 8 Source: Developed by Drs. Sameer Ramos, Zoe Fields, Cameron Corral and colleagues, with an educational shaun from [email or web address]. ERIC-7 Assessment Billing ERIC-7 Assessment Tool: ERIC-7 Assessment 79837 Review of Systems Const All systems reviewed & are unremarkable except as noted in HPI and below Card Denies chest pain at rest, Denies chest pain with activity, Denies edema, Denies irregular heart rhythm, Denies claudication, Denies dyspnea, Denies dyspnea on exertion, Denies orthopnea, Denies paroxysmal nocturnal dyspnea and Denies slow heart rate Resp Denies cough, Denies dyspnea and Denies dyspnea on exertion GI Denies abdominal pain, Denies change in bowel habits, Denies excessive flatus, Denies nausea and Denies vomiting Denies urinary hesitancy, Denies urinary incontinence and Denies urinary urgency Musc Denies atrophy, Denies deformity and Denies limited range of motion Physical exam (Primary Care) Vital Signs: Last Vital Signs Temp 97.3 F 01/28/25 10:00 Pulse 88 01/28/25 10:00 BP 130/86 01/28/25 10:00 Pulse Ox 96 01/28/25 10:00 Oxygen Delivery Method Room Air 01/28/25 10:00 BMI result Body Mass Index 30.8 Tobacco/Smoking Status: Tobacco use Status Tobacco use date assessed 01/28/25 01/28/25 10:05 Patient Tobacco Use Status Never used Tobacco 01/28/25 10:01 e-Cigarette/Vaping Use Never Used 01/28/25 10:01 PHQ-9: PHQ-9 Score PHQ-9: Total score 13 01/28/25 10:05 Depression Screening Interpretation: Positive Depression Screening Follow-up: Existing condition, In treatment, Community Mental Health Worker F/U and Follow- up Visit Requested Thrive Assessment: Date of Thrive Assessment Date Thrive assessed 07/14/24 01/28/25 10:01 Currently or been in a relationship where the following occur: I choose not to answer HENIN Head: Yes normal to inspection, Yes normocephalic and Yes atraumatic Ears: external ears normal Eyes General: appearance normal, both eyes and all related structures Eyelids: Yes eyelids normal Conjunctivae: conjunctivae normal Neck Neck: Yes normal visual inspection and Yes supple Resp Effort & Inspection: normal respiratory effort Auscultation: clear to auscultation bilaterally Cardio Jugular venous distension: no JVD Rate: regular rate Rhythm: regular rhythm Heart sounds: S1 normal heart sound present and S2 normal heart sound present GI Inspection: Yes normal to inspection Palpation (GI): Soft to palpation and nontender Auscultation: normal bowel sounds Skin General skin exam: no rashes or lesions noted Neuro General: no focal motor deficits Extrem General: Yes full ROM Psych Appearance: grossly normal Coding Level of Care Code Est Pt Level 3 (01432) Est Pt Prev Care >65y(48334) Diagnoses Physical exam Z00.00 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 Diabetes mellitus E11.9 Erectile dysfunction N52.9 Additional Codes PHQ-9 - 52283 - PHQ-9 Billing: Yes ([id number]) ERIC-7 Assessment Billing - ERIC-7 Assessment Tool: ERIC-7 Assessment 13110 ([id number]) Time Spent (min) 33 Assessment & Plan Assessment & Plan (1) Physical exam: Code(s): Z00.00 - Encounter for general adult medical examination without abnormal findings Category: Medical (2) Moderate recurrent major depression: Code(s): F33.1 - Major depressive disorder, recurrent, moderate Category: Medical (3) Diabetes mellitus: Code(s): E11.9 - Type 2 diabetes mellitus without complications Category: Medical (4) Erectile dysfunction: Code(s): N52.9 - Male erectile dysfunction, unspecified Category: Medical Plan Plan 1. Physical exam He was sent for colonoscopy in July and has not received a call yet. PCV to any and Td vaccine up-to-date. Had flu vaccine at [facility] this year. Diabetic eye exam once a year. 2. Type 2 Diabetes Mellitus The patient's A1c is at goal (<7%). Continue Metformin 500 mg twice daily, as it is a first-line treatment and is well-tolerated. Laboratory studies will be repe ated today as the patient is fasting. 3. Hypercholesterolemia The patient's last LDL was 93 mg/dL, which is above the goal of <70 mg/dL for a patient with diabetes. Continue atorvastatin 80 mg. A lipid panel will be checked with today's lab draw. 4. Erectile Dysfunction The patient's complaint may be secondary to diabetes. A blood test to check testosterone levels will be performed today. If the result is abnormal, a referral to a urologist will be considered. 5. Depression And Anxiety A recent PHQ-9 score of 13 suggests moderate depression. Continue current ma nagement with paroxetine 30 mg for depression with anxiety and hydroxyzine for anxiety. Orders: Orders Lipid Panel Today E78.5 - Hyperlipidemia, unspecified PSA,Total (Free>4and<10) Today R35.1 - Nocturia Microalbumin, Random (w Creat) Today R80.9 - Proteinuria, unspecified Testosterone, Free/Total Today N52.9 - Male erectile dysfunction, unspecified Comprehensive [place]. Panel Fast Today E11.9 - Type 2 diabetes mellitus without complications Medications: New metformin 500 mg PO BID 180 tabs 0RF 90 days E11.9 - Type 2 diabetes mellitus without complications
--- OUTSIDE RECORDS SUMMARY | 2025-01-28 11:18 | XMS_ITS | Clinical Summary ---
Author Organization [facility] Address [address] [place] [address] Phone Care Team Providers Care Cook Roast Name Role Phone Unavailable Primary Care Provider Unavailabl e Allergies No known active allergies Medications blood-glucose [...] by mouth 2 Times Daily. 1 Active oxyCODONE (ROXICODONE) 5 mg immediate release [...] chew, or split. 20 each 4 Active SITagliptin phosphate (Januvia) 25 mg tablet Take 1 tablet (25 mg total) by mouth 1 (one) time each day. 90 tablet 5 Active OneTouch Ultra Test test strip USE TO CHECK BLOOD SUGAR ONCE DAILY 100 strip 1 5 Active traZODone (DESYREL) 150 mg tablet TAKE 2 TABLETS BY MOUTH AT BEDTIME 180 tablet 1 5 Active omeprazole (PriLOSEC) [address] capsule TAKE 1 CAPSULE BY MOUTH EVERY DAY 90 capsule 1 5 Active lisinopriL (PRINIVIL,ZESTR IL) 10 mg tablet TAKE 1 TABLET BY MOUTH EVERY DAY 90 tablet 5 Active metFORMIN (GLUCOPHAGE) 500 mg tablet TAKE 1 TABLET BY MOUTH TWICE A DAY WITH MEALS 180 tablet 1 5 Active atorvastatin (LIPITOR) 80 mg tablet TAKE 1 TABLET BY MOUTH EVERY DAY 90 tablet 1 5 Active cetirizine (ZyrTEC) 10 mg tablet TAKE 1 TABLET BY MOUTH EVERY DAY 90 tablet 1 5 Active lancets (OneTouch Delica Plus Lancet) 33 gauge USE ONCE A DAY DIRECTED 100 each 1 5 Active Active Problems Problem Noted Date Diagnosed Date Trigger index finger of left hand 03/11/2021 Chronic pain of both knees 10/03/2018 Tubular adenoma of colon 05/13/2018 Overview (01/01/2024): Dr. Dorsey at [facility] 01/30/2012 4 polyps biopsied = tubular [...] Chronic GERD 08/09/2016 Depression, major, in remission ([facility] V24) Overview (01/01/2024): Prior to transferring to our practice in 2018 - saw psychiatrist at [facility] or [place]. Used to be on Risperdal in addition [...] and foot pain 08/09/2016 Seasonal allergies 08/09/2016 Immunizations Immunization Administration Dates Next Due Influenza Quadravalent, MDCK , 0.5ml, preservative free (Flucelvax) 6mo and older 12/05/2019 Influenza Quadravalent, MDCK , 0.5ml, with preservative (Flucelvax) 6mo and older 11/07/2017 Influenza trivalent, 0.5mL ( Fluad) 65yo and older 11/07/2023,01/02/2023,01/10/2022,01/20 Influenza trivalent, 0.5mL ( Fluzone High-dose) 65yo and older 10/28/2024 Influenza trivalent, 0.5mL, preservative free (Fluarix; FluLaval; [...] care for your loved ones. For example, early childhood associate or elderly care for an older adult? [...] Date Recorded What is your living situation? Unrecognized valu e 03/21/2024 Sex and Gender Information Value Date Recorded Sex Assigned at Not on file Legal Sex Male 9:43 AM EST Gender Identity Not on file Sexual Orientation Not on file Obstetrics History Last Filed Vital Signs Vital Sign Reading Time Taken Comments Blood Pressure 112/62 03/28/2024 9:16 AM EST Pulse 73 03/28/2024 9:16 AM EST Temperature 36.4 C (97.5 F) 03/28/2024 9:16 AM EST Respiratory Rate 18 03/28/2024 9:16 AM EST [...] 02/11/2022 Colorectal Cancer Screening: Colonoscopy 07/31/2023 07/30/2018 Diabetes: Annual Foot Exam 07/17/2024 07/18/2023 Diabetes: Blood Sugar Control Test (HGBA1C) 10/13/2024 04/15/2024, 11/14/2023, 11/14/2023, Additional history exists COVID-19 Vaccine ( season) 2024 12/14/2020, 05/03/2020, 04/12/2020 Diabetes: Annual Urine Albumin-Creatinine Ratio (uACR) 11/13/2024 11/14/2023 Social Influencers of Health Screening 03/21/2025 03/21/2024 [...] Screening Completed 11/07/2017 Zoster Vaccines Completed 05/16/2021, 03/0 04/2021, 02/28/2021, Additional history exists Pneumococcal Vaccine: 50+ Years Completed 07/18/2023, 06/14/2017 Depression Screening Completed 03/21/2024 Influenza Vaccine Completed 10/28/2024, , 01/02/2023, Additional history exists HIB Vaccines [...] complication, without long-term current use of insulin ([facility] V24, [facility] V28) Dyslipidemia HEMOGLOBIN A1C Routine 04/15/2024 11:09 AM EST Type 2 diabetes mellitus without complication, without long-term current use of insulin (CMS/HCC V24, CMS/HCC V28) Dyslipidemia LIPID PANEL WITH REFLEX TO DIRECT LDL Routine 04/15/2024 11:09 AM EST Type 2 diabetes mellitus without complication, without long-term current use of insulin (CMS/HCC V24, CMS/HCC V28) Dyslipidemia URINE ALBUMIN CREATININE RATIO Routine [...] METHOD 04/15/2024 5:06 PM [facility] Non HDL Chol. (LDL+VLDL) 140 <145 mg/dL LAB CHEMISTRY METHOD 04/15/2024 5:06 PM [facility] Chol/HDL Ratio 4.0 0.0 - 4.4 LAB CHEMISTRY METHOD 04/15/2024 5:06 PM EST [facility] Blood Venous blood specimen / Unknown Venipuncture / Unknown 04/15/2024 11:09 AM EST 04/15/2024 11:09 AM EST Rafia Fitch MD LAB BLOOD ORDERABL ES Final Result Performing Organization Address [facility]/ZIP Co de Phone Number [facility] [address] [place] [address], [place] [phone] * (ABNORMAL) Hemoglobin A1c (04/15/2024 11:09 AM [...] ORDERABL ES Final Result Performing Organization Address [facility]/ZIP Co de Phone Number [facility] [address] [place] [address], [place] [phone] * (ABNORMAL) Comprehensive metabolic panel (04/15/2024 11:09 [...] PM [facility] Comment:Calculation based on the Chronic Kidney Disease Epidemiology Collaboration (CKD-EPI) equation refit without adjustment for race. BUN/Creatinine Ratio 21.2 LAB [...] METHOD 04/15/2024 5:06 PM [facility] Total Protein 7.9 6.0 - 8.0 g/dL LAB CHEMISTRY METHOD 04/15/2024 5:06 PM [facility] Albumin 4.0 3.2 - 5.0 g/dL LAB CHEMISTRY METHOD 04/15/2024 5:06 PM [facility] Total Bilirubin 0.4 0.0 - 1.4 mg/dL LAB CHEMISTRY METHOD 04/15/2024 5:06 PM EST [facility] Blood Venous blood specimen / Unknown Venipuncture / Unknown 04/15/2024 11:09 AM EST 04/15/2024 11:09 AM EST Rafia Fitch MD LAB BLOOD ORDERABL ES Final Result [facility] [address] [place] [address], [place] [phone] * Urine Albumin Creatinine Ratio (11/14/2023) [facility] Urine Albumin Creatinine Ratio Abstracted Historical Provider HEALTH MAINTENANCE Final Result * Diabetes Foot Exam (07/18/2023) [facility] Diabetes: Annual Foot Exam Abstracted Historical Provider HEALTH MAINTENANCE Final Result * Colonoscopy (07/30/2018) [facility] Colonoscopy No interpretation , Abstracted Anatomical Region Laterality Modality Other Historical Provider HEALTH MAINTENANCE Final Result * Hepatitis C Screening (11/07/2017) [facility] Hepatitis C Screening Abstracted Historical Provider HEALTH MAINTENANCE Final Result from Last 3 Months or Most Recently Relevant to Health Maintenance Insurance [facility] MEDICARE Member Subscriber Plan / Payer (Ef fective 2020-Present) Name:Dre Jimenez Relation to Subscriber:Self Name:Dre Jimenez Payer ID:[id number] Group ID:[id number] Type:Not on file Address: [address] [place] [address]
== END 2025-01-28 10:28 | disposition home or self-care (01) ==
LOC: HO.HMCH 09:49
PROVIDERS: PCP Internal Medicine; Visit Provider Internal Medicine
DX: Z00.00 Encounter for general adult medical examination without abnormal findings (principal); F33.1 Major depressive disorder, recurrent, moderate; E11.9 Type 2 diabetes mellitus without complications; N52.9 Male erectile dysfunction, unspecified